=== PATIENT | male | born 1990 | race Caucasian/White ===

== ENCOUNTER 2019-02-01 17:33 | Emergency (ER) | payer OTHER ==
--- NOTE | 2019-02-01 17:56 | EDM.PDOC ---
ED HPI GENERAL MEDICAL PROBLEM - General Chief Complaint: Respiratory Problem Stated Complaint: CAN'T CATCH BREATH, THROAT HURTS Time Seen by Provider: 02/01/19 17:53 Source of Information: Reports: Patient History Limitations: Reports: No Limitations - History of Present Illness INITIAL COMMENTS - FREE TEXT/NARRATIVE: 3 days h/o progressive worsening SOB. started after running during training. today throat been hurting too. denies F/C, denies smoking. Throat Pain Score (Numeric/FACES): 1 - Related Data Allergies Allergy/AdvReac Type Severity Reaction Status Date / Time No Known Allergies Allergy Verified 02/01/19 17:41 Home Meds: Home Meds . [No Known Home Meds] 02/01/19 [History] Past Medical History - Past Surgical History GI Surgical History: Reports: Appendectomy, Hernia Repair/Other Social & Family History - Tobacco Use Smoking Status *Q: Never Smoker Second Hand Smoke Exposure: No - Recreational Drug Use Recreational Drug Use: No ED ROS GENERAL - Review of Systems Review Of Systems: ROS reveals no pertinent complaints other than HPI. ED EXAM, GENERAL - Physical Exam Exam: See Below Exam Limited By: No Limitations General Appearance: Alert, WD/WN, Mild Distress, Other (discomfort) Ears: Hearing Grossly Normal Throat/Mouth: Normal Voice, No Airway Compromise, Inflammation Head: Atraumatic Neck: Non-Tender, Full Range of Motion Respiratory/Chest: No Accessory Muscle Use, Rhonchi. No: Decreased Breath Sounds Cardiovascular: Regular Rate, Rhythm GI/Abdominal: Soft, Non-Tender Neurological: Alert, Oriented, Normal Cognition, Normal Gait, No Motor/Sensory Deficits Psychiatric: Flat Affect Skin Exam: Warm, Dry, Normal Color Lymphatic: No Adenopathy Course - Vital Signs Last Recorded V/S: Last Vital Signs Temp 36.7 C 02/01/19 17:38 Pulse 80 02/01/19 17:38 Resp 18 02/01/19 17:38 BP 140/83 02/01/19 17:38 Pulse Ox 99 02/01/19 17:38 - Orders/Labs/Meds Orders: Active Orders 24 hr Category Date Time Status RT Aerosol Therapy [RC] ASDIRECTED Care 02/01/19 17:57 Active Chest 2V [CR] Urgent Exams 02/01/19 17:52 Ordered CULTURE STREP A CONFIRMATION [RM] Stat Lab 02/01/19 17:51 Results STREP SCRN A RAPID W CULT CONF [RM] Stat Lab 02/01/19 17:51 Results Meds: Medications Discontinued Medications Generic Name Dose Route Start Last Admin Trade Name Jasbir PRN Reason Stop Dose Admin Albuterol/Ipratropium 3 ml 02/01/19 17:57 02/01/19 18:01 Duoneb 3.0-0.5 Mg/3 Ml NEB 02/01/19 17:58 3 ml ONETIME ONE Administration Amoxicillin 250 mg 02/01/19 18:52 Amoxil PO 02/01/19 18:53 ONETIME ONE - Re-Assessments/Exams Free Text/Narrative Re-Assessment/Exam: 02/01/19 18:53 results discussed wiht pt who is feeling better s/p duoneb Departure - Departure Time of Disposition: 18:54 Disposition: Home, Self-Care 01 Condition: Good Clinical Impression: Tonsillitis, Bronchitis - Discharge Information Instructions: Upper Respiratory Infection, Adult, [id number] Forms: ED Department Discharge Additional Instructions: 1) rest 2) drink lots of liquids 3) recheck as needed rx given: amox 250mg tid x 30 rx togo; albuterol inhaler tid prn - My Orders Last 24 Hours: My Active Orders 02/01/19 17:51 CULTURE STREP A CONFIRMATION [RM] Stat STREP SCRN A RAPID W CULT CONF [RM] Stat 02/01/19 17:52 Chest 2V [CR] Urgent 02/01/19 17:57 RT Aerosol Therapy [RC] ASDIRECTED - Assessment/Plan Last 24 Hours: My Active Orders 02/01/19 17:51 CULTURE STREP A CONFIRMATION [RM] Stat STREP SCRN A RAPID W CULT CONF [RM] Stat 02/01/19 17:52 Chest 2V [CR] Urgent 02/01/19 17:57 RT Aerosol Therapy [RC] ASDIRECTED
[2019-02-01] MEDS ORDERED: Albuterol/Ipratropium 3.0-0.5 MG/3 ML Neb Soln NEB ONE (17:57)
[2019-02-01] MEDS ORDERED: Amoxicillin 250 MG Cap PO ONE (18:52)
== END 2019-02-01 19:07 | disposition home or self-care (01) ==
LOC: DL.ED 17:33
DX: J03.90 Acute tonsillitis, unspecified (principal); J40 Bronchitis, not specified as acute or chronic
CPT/HCPCS: 71046; 87081; 87430; 99284; A9270; J7620-GY